=== PATIENT | female | born 1965 | race African-American/Black ===

== ENCOUNTER 2020-07-04 17:22 | Emergency (ER) | payer OTHER ==
[2020-07-04 21:21] VITALS: BP 168/112
== END 2020-07-04 21:21 | disposition home or self-care (01) ==
LOC: ED 17:22
DX: S40.021A Contusion of right upper arm, initial encounter (principal); S40.212A Abrasion of left shoulder, initial encounter; S40.211A Abrasion of right shoulder, initial encounter; I10 Essential (primary) hypertension; Z88.1 Allergy status to other antibiotic agents; Z91.040 Latex allergy status; Y04.8XXA Assault by other bodily force, initial encounter; Y92.59 Other trade areas as the place of occurrence of the external cause; Y99.0 Civilian activity done for income or pay